=== PATIENT | male | born 1985 | race African-American/Black ===

== ENCOUNTER 2016-09-13 13:14 | Emergency (ER) | payer MEDICAID ==
[~2016-09-13] VITALS: Ht 177.8 cm; Wt 82.0 kg
[2016-09-13 13:50] VITALS: BP 110/69
== END 2016-09-13 18:23 | disposition left against medical advice (07) ==
LOC: ER 18:00
DX: M25.521 Pain in right elbow (principal); Z53.21 Procedure and treatment not carried out due to patient leaving prior to being seen by health care provider

== ENCOUNTER 2017-01-03 04:01 | Emergency (ER) | payer MEDICAID ==
[~2017-01-03] VITALS: Ht 177.8 cm; Wt 80.0 kg
[2017-01-03] MEDS ORDERED: KETOROLAC 60MG/2ML VIAL IM ONE (06:45)
[2017-01-03 07:33] VITALS: BP 103/64
== END 2017-01-03 07:58 | disposition home or self-care (01) ==
LOC: ER 04:01
DX: S93.401A Sprain of unspecified ligament of right ankle, initial encounter (principal); M54.6 Pain in thoracic spine; W10.9XXA Fall (on) (from) unspecified stairs and steps, initial encounter; Y93.89 Activity, other specified; Y92.89 Other specified places as the place of occurrence of the external cause; Y99.8 Other external cause status
CPT/HCPCS: 73030; 73610; 96372; 99284; J1885

== ENCOUNTER 2017-02-20 13:16 | Emergency (ER) | payer SELFPAY ==
[~2017-02-20] VITALS: Ht 177.8 cm; Wt 82.0 kg
[2017-02-20 20:00] VITALS: BP 109/77
== END 2017-02-20 21:13 | disposition home or self-care (01) ==
LOC: ER 13:32
DX: S86.812A Strain of other muscle(s) and tendon(s) at lower leg level, left leg, initial encounter (principal); X58.XXXA Exposure to other specified factors, initial encounter; Y93.9 Activity, unspecified; Y92.9 Unspecified place or not applicable
CPT/HCPCS: 93970; 99284